=== PATIENT | female | born 1945 | race Caucasian/White ===

== ENCOUNTER 2018-07-01 12:59 | Emergency (ER) | payer MEDICARE ==
[2018-07-01 13:55] LABS: RAPID GROUP A STREP NEGATIVE (NEGATIVE)
[2018-07-01] MEDS ORDERED: IPRATROPIUM/ALBUTEROL SULFATE 3 ML SOLUTION IH ONE (14:22)
== END 2018-07-01 15:09 | disposition home or self-care (01) ==
LOC: EDH 12:59
DX: J06.9 Acute upper respiratory infection, unspecified (principal); I10 Essential (primary) hypertension; E78.5 Hyperlipidemia, unspecified; E11.9 Type 2 diabetes mellitus without complications; I48.91 Unspecified atrial fibrillation; Z79.4 Long term (current) use of insulin; Z88.1 Allergy status to other antibiotic agents; Z88.2 Allergy status to sulfonamides
CPT/HCPCS: 71046; 87804; 87880; 94640